=== PATIENT | male | born 1955 | race Caucasian/White ===

== ENCOUNTER → 2019-05-06 | Outpatient (CLI) | payer OTHER ==
[~2019-05-06] MED LIST: FLEXERIL PO; IBUPROFEN 800800 MG PO; NORCO 5-325 TA1 EACH PO
== END ==
LOC: ULTRA 15:09
DX: N43.3 Hydrocele, unspecified (principal)

== ENCOUNTER 2019-09-26 22:33 | Emergency (ER) | payer OTHER ==
[~2019-09-26] VITALS: Ht 165.1 cm; Wt 68.0 kg
[2019-09-27] MEDS ORDERED: NOHOMEMEDICATIONS (01:00)
[2019-09-27 01:30] VITALS: BP 128/79
[2019-09-27 01:37] LABS: URINE BILIRUBIN NEGATIVE (Negative); URINE BLOOD NEGATIVE (Negative); URINE CLARITY CLEAR; URINE COLOR YELLOW; URINE GLUCOSE-RANDOM* NEGATIVE (Negative); URINE KETONES NEGATIVE (Negative); URINE LEUKOCYTES-REFLEX NEGATIVE (Negative); URINE NITRITE-REFLEX NEGATIVE (Negative); URINE PROTEIN (DIPSTICK) NEGATIVE (Negative); URINE SPECIFIC GRAVITY >= 1.030 (1.005-1.035); URINE UROBILINOGEN 0.2 E.U./dl (0.2-1.0)
[2019-09-27] MEDS ORDERED: NAPROSYN500 MG PO (03:01)
[2019-09-27] MEDS ORDERED: TRAMADOL 50 MG50 MG PO (03:01)
== END 2019-09-27 03:05 | disposition home or self-care (01) ==
LOC: ER 22:33
PROVIDERS: Emergency Medicine
DX: M79.651 Pain in right thigh (principal)

== ENCOUNTER 2019-10-18 14:31 | Emergency (ER) | payer OTHER ==
[~2019-10-18] VITALS: Ht 175.3 cm; Wt 61.7 kg
--- NOTE | ~2019-10-18 | EKG ---
[facility] [place] [address] ELECTROCARDIOGRAM REPORT Name: ROSENDO ROSS Room #: [facility]..#: [id number] Admission: Attend Phys: Discharge: Date of : 53 Report #: [id number] THIS REPORT FOR: cc: Saeed Gonzales James A. DO Epiphany, Epiphany MD ~ THIS REPORT FOR: //name// [facility] ED Test Date: 2019-10-18 Test Time: 14:57:08 Pat Name: ROSENDO ROSS Department: Room: Gender: M Assembling Machine Operator: prasad : 1955 Requested By: Tyler Paul Order Number: [id number] MD: Measurements Intervals [place] Rate: 86 P: 59 MT: 141 QRS: 48 QRSD: 91 T: 46 QT: 360 QTc: 431 Interpretive Statements Sinus rhythm Probable left atrial enlargement ST elevation, consider inferior injury Compared to ECG 02/27/2006 13:07:53 ST (T wave) deviation now present Myocardial infarct finding now present Sinus bradycardia no longer present [email or web address] By: 1457 1457 Epiphany Epiphany, /EPI
[~2019-10-18 14:31] MED LIST changes: +NAPROSYN500 MG PO; +NOHOMEMEDICATIONS; +TRAMADOL 50 MG50 MG PO
[2019-10-18] MEDS ORDERED: DOXYCYCLINE 10100 M2 PO (14:37)
[2019-10-18] MEDS ORDERED: GABAPENTIN100 MG PO (14:37)
[2019-10-18] MEDS ORDERED: LORAZEPAM 1 MG T1 MG PO (14:38)
[2019-10-18] MEDS ORDERED: MELOXICAM15 MG PO (14:38)
[2019-10-18 15:31] LABS: ABSOLUTE NEUTROPHILS 12.1 thou/uL (1.4-8.2); BASOPHILS 0.5 % (0.0-2.0); EOSINOPHILS 0.1 % (0.0-3.0); HEMATOCRIT 39.9 % (42.0-52.0); HEMOGLOBIN 12.8 gm/dL (14.0-18.0); LYMPHOCYTES 10.7 % (24.0-44.0); MCH 27.4 pg (26.0-34.0); MCV 85.9 fL (80.0-100.0); MONOCYTES 5.2 % (1.0-8.0); PLATELET COUNT 243 thou/uL (150-400); POLYS 83.5 % (36.0-66.0); RBC 4.65 mil/uL (4.50-6.00); RDW 14.5 % (10.5-14.5); WBC 14.5 thou/uL (4.0-11.0)
[2019-10-18 15:48] LABS: ANION GAP 11 mmol/L (7-16); BUN 24 mg/dL (7-18); CALCIUM 8.5 mg/dL (8.5-10.1); CHLORIDE 100 mmol/L (98-107); CO2 25 mmol/L (21-32); CREATININE 1.2 mg/dL (0.7-1.3); GLUCOSE 118 mg/dL (74-106); POTASSIUM 3.5 mmol/L (3.5-5.1); SODIUM 136 mmol/L (136-145)
[2019-10-18 15:59] LABS: ALBUMIN 3.4 g/dL (3.4-5.0); MAGNESIUM 1.9 mg/dL (1.8-2.4); SGOT 15 U/L (15-37); SGPT 25 U/L (30-65); TOTAL BILIRUBIN 0.7 mg/dL (<0.1-1.0); TOTAL PROTEIN 7.7 g/dL (6.4-8.2); TROPONIN-I <0.06 ng/mL (<0.06)
[2019-10-18 18:38] LABS: URINE BILIRUBIN NEGATIVE (Negative); URINE BLOOD NEGATIVE (Negative); URINE CLARITY CLEAR; URINE COLOR YELLOW; URINE GLUCOSE-RANDOM* NEGATIVE (Negative); URINE KETONES NEGATIVE (Negative); URINE LEUKOCYTES-REFLEX NEGATIVE (Negative); URINE NITRITE-REFLEX NEGATIVE (Negative); URINE PROTEIN (DIPSTICK) TRACE (Negative); URINE SPECIFIC GRAVITY >= 1.030 (1.005-1.035)
[2019-10-18 18:47] LABS: AMP/METHAMP POSITIVE (Negative); BARBITURATES Negative (Negative); BENZODIAZEPINES Negative (Negative); COCAINE Negative (Negative); METHADONE Negative (Negative); OPIATES Negative (Negative); PCP Negative (Negative)
[2019-10-18] MEDS ORDERED: ATIVAN0.5 M1 PO (19:11)
[2019-10-18 20:06] VITALS: BP 107/62
== END 2019-10-18 20:00 | disposition home or self-care (01) ==
LOC: ER 14:31
PROVIDERS: Emergency Medicine
DX: R42 Dizziness and giddiness (principal); T42.4X5A Adverse effect of benzodiazepines, initial encounter; Y92.89 Other specified places as the place of occurrence of the external cause